=== PATIENT | female | born 1960 | race Caucasian/White ===

== ENCOUNTER 2019-03-22 21:39 | Emergency (ER) | payer MEDICARE, OTHER ==
[~2019-03-22] VITALS: Ht 154.9 cm; Wt 87.3 kg
[2019-03-22 21:43] VITALS: TEMP 97.7
[2019-03-22] MEDS ORDERED: NORCO 325 MG-51 TAB PO (22:05)
[2019-03-22] MEDS ORDERED: VITAMIN D 1001000 IU PO (22:05)
[2019-03-22] MEDS ORDERED: MOBIC 7.5MG7.5 MG (22:06)
[2019-03-22 22:30] LABS: BASO # 0.1 (0.0-0.2); BASO % 0.7 % (0.0-2.0); EOS # 0.2 (0.0-0.7); EOS % 2.5 % (0-4.0); GRAN # 3.5 (1.4-6.5); GRAN % 49.6 % (42.2-75.2); HEMATOCRIT 37.3 % (37.0-47.0); LYMPH # 2.7 (1.2-3.4); LYMPH % 38.6 % (20.0-51.0); MEAN CELL VOLUME 85 fl (80.0-100.0); MEAN CORPUSCULAR HEMOGLOBIN 27 pg (27.0-31.0); MEAN CORPUSCULAR HGB CONC 32 g/dl (33.0-37.0); MEAN PLATELET VOLUME 8.5 fl (7.4-10.4); MONO # 0.6 (0.1-0.6); MONO % 8.2 % (1.7-9.3); PLATELET COUNT 274 K/mm3 (130-400); RED BLOOD COUNT 4.38 M/mm3 (4.10-5.30); REDCELL DISTRIBUTION WIDTH-CV 14.1 % (11.5-14.5)
[2019-03-22 22:40] LABS: ALANINE AMINOTRANSFERASE 17 U/L (9-52); ALBUMIN 4.1 gm/dL (3.5-5.0); ALKALINE PHOSPHATASE 64 U/L (50-136); ANION GAP 9 mmol/L (7-16); AST,SGOT 16 U/L (15-37); BILIRUBIN,TOTAL 0.1 mg/dL (0.0-1.0); BLOOD UREA NITROGEN 16 mg/dL (7-17); CARBON DIOXIDE 27 mmol/L (22-30); CHLORIDE 101 mmol/L (98-107); CREATINE KINASE 49 U/L (30-135); CREATININE, serum 1.02 (0.52-1.25); GLUCOSE 152 mg/dL (74-106); POTASSIUM 3.8 mmol/L (3.4-5.0); SODIUM 137 mmol/L (137-145); TOTAL PROTEIN 7.2 gm/dL (6.4-8.2)
[2019-03-22 22:51] LABS: TROPONIN-I < 0.012 ng/mL (0.000-0.035)
[2019-03-22 23:13] LABS: COLLECTION METHOD CLEAN CATCH
[2019-03-22 23:19] LABS: MUCOUS Present /lpf; PH 7 (5-8); SQUAMOUS EPITHELIAL 0-2 /hpf; URINE APPEARANCE Clear; URINE BACTERIA None Seen /hpf; URINE BILIRUBIN Negative (NEGATIVE); URINE BLOOD Negative (NEGATIVE); URINE COLOR Straw; URINE GLUCOSE Negative (NEGATIVE); URINE KETONE Negative (NEGATIVE); URINE LEUKOCYTE ESTERASE Negative (NEGATIVE); URINE NITRATE Negative (NEGATIVE); URINE PROTEIN(semi-quant) Negative (NEGATIVE); URINE RBC 0-2 /hpf; URINE UROBILINOGEN Negative (NEGATIVE)
[2019-03-23 02:30] VITALS: BP 140/67; PULSE 60
== END 2019-03-23 02:35 | disposition home or self-care (01) ==
LOC: COL.ER 21:39
PROVIDERS: Emergency Medicine
DX: R53.1 Weakness (principal)
CPT/HCPCS: J7030

== ENCOUNTER → 2019-09-15 | Outpatient (RCR) | payer MEDICARE, OTHER ==
[~2019-09-15] MED LIST: MOBIC 7.5MG7.5 MG; NORCO 325 MG-51 TAB PO; VITAMIN D 1001000 IU PO
== END | disposition home or self-care (01) ==
LOC: WSST
DX: G31.84 Mild cognitive impairment of uncertain or unknown etiology (principal)

== ENCOUNTER → 2019-12-30 | Outpatient (RCR) | payer MEDICARE, OTHER | END | disposition home or self-care (01) | LOC: WSST | DX: G31.84 Mild cognitive impairment of uncertain or unknown etiology (principal) ==

== ENCOUNTER 2020-01-24 18:00 | Emergency (ER) | payer MEDICARE, OTHER ==
[~2020-01-24] VITALS: Ht 154.9 cm; Wt 86.4 kg
[2020-01-24 18:01] VITALS: TEMP 98.2
[2020-01-24 18:30] LABS: BASO # 0.1 (0.0-0.2); BASO % 0.6 % (0.0-2.0); EOS # 0.2 (0.0-0.7); EOS % 2.8 % (0-4.0); GRAN # 4.3 (1.4-6.5); GRAN % 54.4 % (42.2-75.2); HEMOGLOBIN 12.4 g/dl (12.5-16.0); LYMPH # 2.9 (1.2-3.4); LYMPH % 36.4 % (20.0-51.0); MEAN CELL VOLUME 86 fl (80.0-100.0); MEAN CORPUSCULAR HEMOGLOBIN 28 pg (27.0-31.0); MEAN CORPUSCULAR HGB CONC 33 g/dl (33.0-37.0); MEAN PLATELET VOLUME 8.2 fl (7.4-10.4); MONO # 0.4 (0.1-0.6); MONO % 5.5 % (1.7-9.3); PLATELET COUNT 265 K/mm3 (130-400); RED BLOOD COUNT 4.42 M/mm3 (4.10-5.30); REDCELL DISTRIBUTION WIDTH-CV 13.6 % (11.5-14.5)
[2020-01-24 18:31] LABS: COLLECTION METHOD CLEAN CATCH
[2020-01-24 18:39] LABS: MUCOUS Present /lpf; PH 7 (5-8); SQUAMOUS EPITHELIAL 0-2 /hpf; URINE APPEARANCE Clear; URINE BACTERIA Rare /hpf; URINE BILIRUBIN Negative (NEGATIVE); URINE BLOOD Negative (NEGATIVE); URINE COLOR Straw; URINE GLUCOSE Negative (NEGATIVE); URINE KETONE Negative (NEGATIVE); URINE LEUKOCYTE ESTERASE Negative (NEGATIVE); URINE NITRATE Negative (NEGATIVE); URINE PROTEIN(semi-quant) Negative (NEGATIVE); URINE RBC 0-2 /hpf; URINE UROBILINOGEN Negative (NEGATIVE)
[2020-01-24 18:40] LABS: ALANINE AMINOTRANSFERASE 17 U/L (4-34); ALBUMIN 4.5 gm/dL (3.5-5.0); ALKALINE PHOSPHATASE 64 U/L (50-136); ANION GAP 10 mmol/L (7-16); AST,SGOT 23 U/L (15-37); BILIRUBIN,TOTAL 0.3 mg/dL (0.0-1.0); BLOOD UREA NITROGEN 10 mg/dL (7-17); CALCIUM 9.3 mg/dL (8.4-10.2); CARBON DIOXIDE 28 mmol/L (22-30); CHLORIDE 99 mmol/L (98-107); CREATININE, serum 0.67 (0.52-1.25); GLUCOSE 179 mg/dL (74-106); POTASSIUM 3.7 mmol/L (3.4-5.0); SODIUM 138 mmol/L (137-145); TOTAL PROTEIN 7.5 gm/dL (6.4-8.2)
[2020-01-24 18:58] LABS: TROPONIN-I < 0.012 ng/mL (0.000-0.035)
[2020-01-24 23:21] VITALS: BP 114/56; PULSE 57
== END 2020-01-24 23:21 | disposition home or self-care (01) ==
LOC: COL.ER 18:00
PROVIDERS: Emergency Medicine
DX: R53.1 Weakness (principal); R00.2 Palpitations; M79.7 Fibromyalgia; G89.29 Other chronic pain; Z88.0 Allergy status to penicillin; Z88.2 Allergy status to sulfonamides; Z88.6 Allergy status to analgesic agent
CPT/HCPCS: J2405; J7030

== ENCOUNTER 2020-03-09 12:45 | Outpatient (RCR) | payer MEDICARE, OTHER | END 2020-04-12 | disposition home or self-care (01) | LOC: WSST | DX: G62.9 Polyneuropathy, unspecified (principal) ==

== ENCOUNTER 2020-03-09 13:30 | Outpatient (RCR) | payer MEDICARE, OTHER | END 2020-03-09 17:46 | disposition home or self-care (01) | LOC: MKS.ESL.PT 13:30 | DX: G62.9 Polyneuropathy, unspecified (principal); M79.7 Fibromyalgia ==

== ENCOUNTER → 2020-04-25 | Outpatient (RCR) | payer MEDICARE, OTHER | END | disposition home or self-care (01) | LOC: WSST | DX: G31.84 Mild cognitive impairment of uncertain or unknown etiology (principal) ==

== ENCOUNTER 2020-06-20 14:30 | Outpatient (RCR) | payer MEDICARE, OTHER | END 2020-08-07 | disposition home or self-care (01) | LOC: WSST | DX: G31.84 Mild cognitive impairment of uncertain or unknown etiology (principal) ==

== ENCOUNTER → 2021-02-08 | Outpatient (CLI) | payer MEDICARE, OTHER | LOC: DIA.ED 02:03 | DX: E11.9 Type 2 diabetes mellitus without complications (principal) | CPT/HCPCS: G0108 ==

== ENCOUNTER 2021-05-23 13:48 | Emergency (ER) | payer MEDICARE, OTHER ==
[~2021-05-23] VITALS: Ht 154.9 cm; Wt 84.1 kg
[2021-05-23 14:00] VITALS: TEMP 97.8
[2021-05-23 14:28] LABS: BASO % 0.6 % (0.0-2.0); EOS # 0.1 K/mm3 (0.0-0.7); GRAN # 2.3 K/mm3 (1.4-6.5); GRAN % 45.8 % (42.2-75.2); HEMOGLOBIN 11.9 g/dl (12.5-16.0); LYMPH # 2.1 K/mm3 (1.2-3.4); LYMPH % 41.3 % (20.0-51.0); MEAN CELL VOLUME 85 fl (80.0-100.0); MEAN CORPUSCULAR HEMOGLOBIN 28 pg (27-31); MEAN CORPUSCULAR HGB CONC 33 g/dl (33.0-37.0); MEAN PLATELET VOLUME 8.2 fl (7.4-10.4); MONO # 0.5 K/mm3 (0.1-0.6); MONO % 10.1 % (1.7-9.3); PLATELET COUNT 204 K/mm3 (130-400); RED BLOOD COUNT 4.32 M/mm3 (4.10-5.30); REDCELL DISTRIBUTION WIDTH-CV 13.8 % (11.5-14.5)
[2021-05-23] MEDS ORDERED: OMEGA-31 SGL PO (14:30)
[2021-05-23 14:33] LABS: HEMATOCRIT 36.6 % (37.0-47.0)
[2021-05-23 14:48] LABS: ALANINE AMINOTRANSFERASE 14 U/L (0-55); ALBUMIN 3.7 gm/dL (3.4-4.8); ALKALINE PHOSPHATASE 56 U/L (40-150); ANION GAP 9 mmol/L (7-16); AST,SGOT 15 U/L (5-34); BILIRUBIN,TOTAL 0.2 mg/dL (0.2-1.2); BLOOD UREA NITROGEN 10 mg/dL (10-20); CALCIUM 9.1 mg/dL (8.4-10.2); CARBON DIOXIDE 26 mmol/L (23-31); CHLORIDE 104 mmol/L (98-107); CREATININE, serum 0.73 mg/dL (0.57-1.11); GLUCOSE 111 mg/dL (70-99); LIPASE 33 U/L (8-78); POTASSIUM 3.6 mmol/L (3.5-4.5); SODIUM 139 mmol/L (136-145); TOTAL PROTEIN 7.1 gm/dL (6.2-8.1)
[2021-05-23 15:11] LABS: TROPONIN-I < 0.010 ng/mL (0.00-0.033)
[2021-05-23 15:19] LABS: COLLECTION METHOD CLEAN CATCH
[2021-05-23 15:26] LABS: PH 6 (5-8); SQUAMOUS EPITHELIAL 0-2 /hpf (0-10); URINE APPEARANCE Clear (CLEAR/HAZY); URINE BACTERIA None Seen /hpf (NONE SEEN); URINE BILIRUBIN Negative (NEGATIVE); URINE BLOOD Negative (NEGATIVE); URINE COLOR Straw (YELLOW); URINE GLUCOSE Negative (NEGATIVE); URINE KETONE Negative (NEGATIVE); URINE LEUKOCYTE ESTERASE Negative (NEGATIVE); URINE NITRATE Negative (NEGATIVE); URINE PROTEIN(semi-quant) Negative (NEGATIVE); URINE RBC 0-2 /hpf (0-2); URINE UROBILINOGEN Negative (NEGATIVE)
[2021-05-23 15:49] VITALS: BP 111/79; PULSE 64
== END 2021-05-23 15:57 | disposition home or self-care (01) ==
LOC: COL.ER 13:48
PROVIDERS: Emergency Medicine
DX: U07.1 COVID-19 (principal); Z73.0 Burn-out
CPT/HCPCS: J2405; J7120

== ENCOUNTER 2021-12-08 10:42 | Observation (INO) | payer MEDICARE, OTHER ==
[~2021-12-08] VITALS: Ht 157.5 cm; Wt 88.0 kg
[~2021-12-08 10:42] MED LIST changes: +OMEGA-31 SGL PO
[2021-12-08 11:28] LABS: BASO # 0.1 K/mm3 (0.0-0.2); BASO % 0.9 % (0.0-2.0); EOS # 0.2 K/mm3 (0.0-0.7); EOS % 2.3 % (0.0-4.0); GRAN % 60.4 % (42.2-75.2); HEMATOCRIT 39.9 % (37.0-47.0); HEMOGLOBIN 13.1 g/dl (12.5-16.0); LYMPH # 1.9 K/mm3 (1.2-3.4); LYMPH % 29.2 % (20.0-51.0); MEAN CELL VOLUME 85 fl (80.0-100.0); MEAN CORPUSCULAR HEMOGLOBIN 28 pg (27-31); MEAN CORPUSCULAR HGB CONC 33 g/dl (33.0-37.0); MEAN PLATELET VOLUME 8.2 fl (7.4-10.4); MONO # 0.4 K/mm3 (0.1-0.6); MONO % 6.7 % (1.7-9.3); PLATELET COUNT 238 K/mm3 (130-400); RED BLOOD COUNT 4.68 M/mm3 (4.10-5.30); REDCELL DISTRIBUTION WIDTH-CV 13.4 % (11.5-14.5)
[2021-12-08 11:35] LABS: COLLECTION METHOD CLEAN CATCH
[2021-12-08 11:51] LABS: SQUAMOUS EPITHELIAL 0-2 /hpf (0-10); URINE BACTERIA Rare /hpf (NONE SEEN); URINE RBC 0-2 /hpf (0-2)
[2021-12-08 11:52] LABS: URINE APPEARANCE Clear (CLEAR/HAZY); URINE BLOOD Negative (NEGATIVE); URINE COLOR Straw (YELLOW); URINE GLUCOSE Negative (NEGATIVE); URINE KETONE Negative (NEGATIVE); URINE NITRATE Negative (NEGATIVE); URINE PROTEIN(semi-quant) Negative (NEGATIVE); URINE UROBILINOGEN 0.2 E.U/dL (0.2-1.0)
[2021-12-08 12:04] LABS: ALANINE AMINOTRANSFERASE 11 U/L (0-55); ALBUMIN 3.7 gm/dL (3.4-4.8); ALKALINE PHOSPHATASE 62 U/L (40-150); ANION GAP 11 mmol/L (7-16); AST,SGOT 11 U/L (5-34); BILIRUBIN,TOTAL 0.3 mg/dL (0.2-1.2); BLOOD UREA NITROGEN 17 mg/dL (10-20); CARBON DIOXIDE 24 mmol/L (23-31); CHLORIDE 104 mmol/L (98-107); CREATININE, serum 0.81 mg/dL (0.57-1.11); GLUCOSE 187 mg/dL (70-99); POTASSIUM 3.9 mmol/L (3.5-4.5); SODIUM 139 mmol/L (136-145); TOTAL PROTEIN 7.2 gm/dL (6.2-8.1)
[2021-12-08 12:12] LABS: TROPONIN-I < 0.010 ng/mL (0.00-0.033)
--- NOTE | 2021-12-08 16:13 | NUR ---
Patient arrived to the unit, alert and oriented x 4, VSS. Complains of headache in her left side and behind her left eye. States it is just uncomfortable.
[2021-12-08 16:15] VITALS: BP 113/72; PULSE 56; TEMP 97.8
[2021-12-08 16:23] LABS: TSH w REFLEX 1.235 uIU/mL (0.350-4.940)
[2021-12-08] MEDS ORDERED: TYLENOL 8 HR PO (17:02)
[2021-12-08] MEDS ORDERED: NEURONTIN300 MG/CAP PO (17:03)
--- NOTE | 2021-12-08 18:28 | NUR ---
Patient has been stable since she arrived. Complains of fatigue. She had dinner. On telemetry, NSR. Report will be given to night RN.
[2021-12-08 20:45] VITALS: BP 117/72; PULSE 65; TEMP 97.9
[2021-12-09 00:56] VITALS: BP 107/59; PULSE 64; TEMP 97.8
[2021-12-09 04:05] VITALS: BP 102/58; PULSE 59; TEMP 97.8
--- NOTE | 2021-12-09 05:00 | NUR ---
ASSESSMENT COMPLETE FOR PACKAGE SEALER MACHINE. PT RESTING IN BED WITH HER BY HER SIDE. PT COMPLAINED OF FIBROMYALGIA PAIN AND FATIGUE. HOSPITALIST CALLED. NEURONTIN AND TYLENOL ORDERED AND GIVEN. PT FELT GIVEN PAIN RELIEF WAS EFFECTIVE. PT DENIED CHEST PAIN, PALPITATIONS, SOB, N,V,D OR DIZZINESS. NEURO CHECKS WNR THIS SHIFT. PT EXPRESSED NO ADDITIONAL NEEDS AT THIS TIME. CALL LIGHT WITHIN REACH.
[2021-12-09 06:05] LABS: BASO # 0.1 K/mm3 (0.0-0.2); BASO % 0.8 % (0.0-2.0); EOS # 0.2 K/mm3 (0.0-0.7); EOS % 2.8 % (0.0-4.0); GRAN # 3.5 K/mm3 (1.4-6.5); GRAN % 48.2 % (42.2-75.2); HEMATOCRIT 37.4 % (37.0-47.0); LYMPH # 2.9 K/mm3 (1.2-3.4); LYMPH % 39.9 % (20.0-51.0); MEAN CELL VOLUME 86 fl (80.0-100.0); MEAN CORPUSCULAR HEMOGLOBIN 28 pg (27-31); MEAN CORPUSCULAR HGB CONC 32 g/dl (33.0-37.0); MEAN PLATELET VOLUME 8.3 fl (7.4-10.4); MONO # 0.6 K/mm3 (0.1-0.6); MONO % 7.7 % (1.7-9.3); PLATELET COUNT 247 K/mm3 (130-400); RED BLOOD COUNT 4.35 M/mm3 (4.10-5.30); REDCELL DISTRIBUTION WIDTH-CV 13.6 % (11.5-14.5)
[2021-12-09 06:28] LABS: CALCIUM 9.4 mg/dL (8.4-10.2); CREATININE, serum 0.73 mg/dL (0.57-1.11); POTASSIUM 3.8 mmol/L (3.5-4.5)
[2021-12-09 07:36] VITALS: BP 102/51; PULSE 59; TEMP 97.8
--- NOTE | 2021-12-09 08:00 | NUR ---
Patient laying in bed with CPAP on. A&Ox4. Reports being tired and having a headache. Nurse provided a warm blanket to place under the neck and pain medication as requested. IV CDI. No further needs expressed. Call light within reach
[2021-12-09] MEDS ORDERED: ASPIRIN E.C. 8181 MG PO (10:30)
[2021-12-09] MEDS ORDERED: IMITREX50 MG PO (10:33)
[2021-12-09] MEDS ORDERED: ULTRAM 50MG TAB50 MG PO (10:35)
--- NOTE | 2021-12-09 11:53 | NUR ---
Discharge paperwork reviewed with the patient. Patient verbalized an understanding to follow doctors orders. IV removed, tip intact. No further needs expressed. Waiting on ride home. Call light within reach
--- NOTE | 2021-12-09 12:15 | NUR ---
Patient taken by wheelchair to awaiting car. No further needs expressed
--- NOTE | 2021-12-09 14:47 | NUR ---
Sw met with pt to complete intake. Pt lives lives alone and is independent. Pt does use a cane sometimes. Pt NK is her children Bonny. [phone] or [phone]. PCP is Dr. Rosas and gets medications from Rena richards. Pt not interested in [facility] at this time. DC: Home with speech referral.
[2021-12-10] MEDS ORDERED: ATIVAN 1MG T1 MG/TAB PO (05:39)
== END 2021-12-09 12:15 | disposition home or self-care (01) ==
LOC: COL.ER 10:42 → MEDICAL 13:14 → SURG 17:35 → MEDICAL 17:35
PROVIDERS: Emergency Medicine; Physician Assistant; ADMIT Internal Medicine
DX: R51.9 Headache, unspecified (principal); R53.81 Other malaise; R53.1 Weakness; M79.7 Fibromyalgia; E11.9 Type 2 diabetes mellitus without complications; R20.0 Anesthesia of skin; R20.2 Paresthesia of skin; Z28.310 Unvaccinated for COVID-19; Z28.9 Immunization not carried out for unspecified reason
CPT/HCPCS: G0378; J2765; J7030

== ENCOUNTER 2021-12-10 03:22 | Emergency (ER) | payer MEDICARE, OTHER ==
[~2021-12-10] VITALS: Ht 154.9 cm; Wt 89.1 kg
[~2021-12-10 03:22] MED LIST changes: +ASPIRIN E.C. 8181 MG PO; +IMITREX50 MG PO; +NEURONTIN300 MG/CAP PO; +TYLENOL 8 HR PO; +ULTRAM 50MG TAB50 MG PO
[2021-12-10 03:31] VITALS: TEMP 97.7
[2021-12-10 03:55] LABS: BASO # 0.1 K/mm3 (0.0-0.2); EOS # 0.3 K/mm3 (0.0-0.7); EOS % 3.2 % (0.0-4.0); GRAN # 5.1 K/mm3 (1.4-6.5); GRAN % 54.5 % (42.2-75.2); HEMATOCRIT 40.3 % (37.0-47.0); LYMPH # 3.2 K/mm3 (1.2-3.4); LYMPH % 34.6 % (20.0-51.0); MEAN CELL VOLUME 87 fl (80.0-100.0); MEAN CORPUSCULAR HEMOGLOBIN 28 pg (27-31); MEAN CORPUSCULAR HGB CONC 32 g/dl (33.0-37.0); MONO # 0.6 K/mm3 (0.1-0.6); MONO % 6.3 % (1.7-9.3); PLATELET COUNT 250 K/mm3 (130-400); RED BLOOD COUNT 4.66 M/mm3 (4.10-5.30); REDCELL DISTRIBUTION WIDTH-CV 13.5 % (11.5-14.5)
[2021-12-10 04:18] LABS: BILIRUBIN,TOTAL 0.2 mg/dL (0.2-1.2); CALCIUM 9.4 mg/dL (8.4-10.2); CREATININE, serum 0.82 mg/dL (0.57-1.11); POTASSIUM 3.7 mmol/L (3.5-4.5); TOTAL PROTEIN 7.6 gm/dL (6.2-8.1)
[2021-12-10] MEDS ORDERED: ATIVAN 1MG T1 MG/TAB PO (05:39)
[2021-12-10 05:48] VITALS: BP 108/73; PULSE 74
== END 2021-12-10 05:48 | disposition home or self-care (01) ==
LOC: COL.ER 03:22
PROVIDERS: Personal Emergency Response Attendant
DX: R25.1 Tremor, unspecified (principal)

== ENCOUNTER 2021-12-26 14:11 | Emergency (ER) | payer MEDICARE, OTHER ==
[~2021-12-26] VITALS: Ht 154.9 cm; Wt 85.5 kg
[~2021-12-26 14:11] MED LIST changes: +ATIVAN 1MG T1 MG/TAB PO
[2021-12-26 14:34] VITALS: TEMP 98.3
[2021-12-26 15:23] LABS: BASO # 0.1 K/mm3 (0.0-0.2); BASO % 0.8 % (0.0-2.0); EOS # 0.2 K/mm3 (0.0-0.7); EOS % 3.1 % (0.0-4.0); GRAN % 54.2 % (42.2-75.2); HEMATOCRIT 37.7 % (37.0-47.0); HEMOGLOBIN 12.6 g/dl (12.5-16.0); LYMPH # 2.5 K/mm3 (1.2-3.4); LYMPH % 34.1 % (20.0-51.0); MEAN CELL VOLUME 84 fl (80.0-100.0); MEAN CORPUSCULAR HEMOGLOBIN 28 pg (27-31); MEAN CORPUSCULAR HGB CONC 33 g/dl (33.0-37.0); MEAN PLATELET VOLUME 8.2 fl (7.4-10.4); MONO # 0.5 K/mm3 (0.1-0.6); MONO % 7.4 % (1.7-9.3); PLATELET COUNT 263 K/mm3 (130-400); RED BLOOD COUNT 4.47 M/mm3 (4.10-5.30); REDCELL DISTRIBUTION WIDTH-CV 13.5 % (11.5-14.5)
[2021-12-26 15:37] LABS: BILIRUBIN,TOTAL 0.3 mg/dL (0.2-1.2); C-REACTIVE PROTEIN 0.74 mg/dL (0.00-0.50); POTASSIUM 3.8 mmol/L (3.5-4.5)
[2021-12-26 15:58] LABS: ALBUMIN 3.8 gm/dL (3.4-4.8); CREATININE, serum 0.78 mg/dL (0.57-1.11)
[2021-12-26 17:19] VITALS: BP 106/67; PULSE 54
== END 2021-12-26 17:25 | disposition home or self-care (01) ==
LOC: COL.ER 14:11
PROVIDERS: Emergency Medicine
DX: G43.809 Other migraine, not intractable, without status migrainosus (principal)
CPT/HCPCS: J1885; J2060; J2765; J7030

== ENCOUNTER 2022-07-09 10:45 | Outpatient (RCR) | payer MEDICARE, OTHER ==
[2022-07-13] MEDS ORDERED: NORCO 325 MG-51 TAB PO (12:15)
== END 2022-07-20 | disposition home or self-care (01) ==
LOC: WSOT
DX: M67.442 Ganglion, left hand (principal); M19.042 Primary osteoarthritis, left hand

== ENCOUNTER 2022-12-17 10:15 | Outpatient (RCR) | payer MEDICARE, OTHER | END 2022-12-20 | disposition home or self-care (01) | LOC: WSOT | DX: M15.2 Bouchard's nodes (with arthropathy) (principal) ==

== ENCOUNTER → 2023-01-07 | Outpatient (CLI) | payer MEDICARE, OTHER | LOC: MHCPAIN 10:03 | DX: M54.50 Low back pain, unspecified (principal); M53.3 Sacrococcygeal disorders, not elsewhere classified; M47.898 Other spondylosis, sacral and sacrococcygeal region | CPT/HCPCS: J3301; Q9967 ==

== ENCOUNTER 2023-01-16 09:00 | Outpatient (RCR) | payer MEDICARE, OTHER | END 2023-01-19 | disposition home or self-care (01) | LOC: WSOT | DX: M15.2 Bouchard's nodes (with arthropathy) (principal) ==

== ENCOUNTER → 2023-05-20 | Outpatient (CLI) | payer MEDICARE, OTHER | LOC: COL.RAD 10:30 | DX: S83.242A Other tear of medial meniscus, current injury, left knee, initial encounter (principal); M25.862 Other specified joint disorders, left knee ==

== ENCOUNTER 2023-05-29 09:52 | Emergency (ER) | payer MEDICARE, OTHER ==
[~2023-05-29] VITALS: Ht 154.9 cm; Wt 89.5 kg
[2023-05-29] MEDS ORDERED: NS 1,000 ML IV ONE (12:45)
[2023-05-29 13:13] VITALS: TEMP 100.3
[2023-05-29 13:21] LABS: BASO # 0.1 K/mm3 (0.0-0.2); BASO % 0.9 % (0.0-2.0); EOS % 0.7 % (0.0-4.0); GRAN # 4.4 K/mm3 (1.4-6.5); GRAN % 75.8 % (42.2-75.2); HEMATOCRIT 43.5 % (37.0-47.0); HEMOGLOBIN 14.3 g/dl (12.5-16.0); LYMPH # 0.8 K/mm3 (1.2-3.4); LYMPH % 14.2 % (20.0-51.0); MEAN CELL VOLUME 84 fl (80.0-100.0); MEAN CORPUSCULAR HEMOGLOBIN 28 pg (27-31); MEAN CORPUSCULAR HGB CONC 33 g/dl (33.0-37.0); MEAN PLATELET VOLUME 8.4 fl (7.4-10.4); MONO # 0.5 K/mm3 (0.1-0.6); MONO % 8.1 % (1.7-9.3); PLATELET COUNT 216 K/mm3 (130-400); RED BLOOD COUNT 5.17 M/mm3 (4.10-5.30); REDCELL DISTRIBUTION WIDTH-CV 13.8 % (11.5-14.5)
[2023-05-29 13:36] LABS: BILIRUBIN,TOTAL 0.3 mg/dL (0.2-1.2); CREATININE, serum 0.94 mg/dL (0.57-1.11); POTASSIUM 3.9 mmol/L (3.5-4.5); TOTAL PROTEIN 8.1 gm/dL (6.2-8.1)
[2023-05-29] MEDS ORDERED: CEFTIN 250250 MG/TAB PO (14:11)
[2023-05-29 14:34] VITALS: BP 146/84; PULSE 96
[2023-05-29] MEDS ORDERED: ZITHROMAX Z PA250 MG PO (17:48)
== END 2023-05-29 14:35 | disposition home or self-care (01) ==
LOC: COL.ER 09:52
PROVIDERS: Family Medicine
DX: J10.1 Influenza due to other identified influenza virus with other respiratory manifestations (principal); Z88.0 Allergy status to penicillin; Z88.2 Allergy status to sulfonamides; Z88.5 Allergy status to narcotic agent
CPT/HCPCS: J7030

== ENCOUNTER 2023-08-14 10:30 | Outpatient (RCR) | payer MEDICARE, OTHER ==
[~2023-08-14 10:30] MED LIST changes: +CEFTIN 250250 MG/TAB PO; +ZITHROMAX Z PA250 MG PO
== END 2023-08-20 | disposition home or self-care (01) ==
LOC: WSST
DX: G31.84 Mild cognitive impairment of uncertain or unknown etiology (principal)

== ENCOUNTER → 2023-09-20 | Outpatient (RCR) | payer MEDICARE, OTHER | END | disposition home or self-care (01) | LOC: WSST | DX: R41.3 Other amnesia (principal) ==

== ENCOUNTER 2023-10-02 12:45 | Outpatient (RCR) | payer MEDICARE, OTHER | END 2023-10-20 | disposition home or self-care (01) | LOC: WSST | DX: R48.9 Unspecified symbolic dysfunctions (principal); G31.84 Mild cognitive impairment of uncertain or unknown etiology ==

== ENCOUNTER 2023-10-16 21:46 | Emergency (ER) | payer MEDICARE, OTHER ==
[~2023-10-16] VITALS: Ht 154.9 cm; Wt 85.9 kg
[2023-10-16 22:07] VITALS: TEMP 98.5
[2023-10-17] MEDS ORDERED: ALPRAZolam 0.5 MG TAB PO ONE (01:00)
[2023-10-17] MEDS ORDERED: traMADol 50 MG TAB PO ONE (01:00)
[2023-10-17 01:30] VITALS: BP 123/74; PULSE 66
== END 2023-10-17 01:40 | disposition home or self-care (01) ==
LOC: COL.ER 21:46
DX: S09.90XA Unspecified injury of head, initial encounter (principal); K12.1 Other forms of stomatitis; W18.30XA Fall on same level, unspecified, initial encounter

== ENCOUNTER 2023-11-15 09:00 | Outpatient (RCR) | payer MEDICARE, OTHER | END 2023-11-20 | disposition home or self-care (01) | LOC: WSST | DX: R48.9 Unspecified symbolic dysfunctions (principal); G31.84 Mild cognitive impairment of uncertain or unknown etiology ==

== ENCOUNTER 2023-12-10 14:00 | Outpatient (RCR) | payer MEDICARE, OTHER | END 2023-12-21 | disposition home or self-care (01) | LOC: WSST | DX: R48.9 Unspecified symbolic dysfunctions (principal) ==